=== PATIENT | male | born 1970 | race Hispanic/Latino ===

== ENCOUNTER 2021-03-31 10:20 | Emergency (ER) | payer BC, OTHER ==
[~2021-03-31] VITALS: Ht 165.1 cm; Wt 99.8 kg
[~2021-03-31 10:20] MED LIST: CYCLOBENZAPRINE5 MG PO; MOTRIN200 MG PO; ULTRAM 50MG50 MG PO
== END 2021-03-31 11:42 | disposition home or self-care (01) ==
LOC: FSED 10:25
DX: R06.02 Shortness of breath (principal); M54.9 Dorsalgia, unspecified; G89.29 Other chronic pain
CPT/HCPCS: 71045; 80048; 80053; 82553; 84484; 85025; 93005; 99283